=== PATIENT | female | born 1940 | race Caucasian/White ===

== ENCOUNTER 2022-05-11 08:50 | Emergency (ER) | payer BC, MEDICARE ==
[~2022-05-11] VITALS: Ht 172.7 cm; Wt 58.1 kg
--- NOTE | 2022-05-11 09:45 | NUR ---
Patient presented to the ER C/O (RT) 5th digit injury, C/O pain/discomfort, skin intact. Patient is A/O X 4, seen by the MD, X-ray ordered and completed. Patient seen and cleared for discharge home, Finger splint applied, discharge instructions given. Patient stable left ambulatory.
== END 2022-05-11 09:45 | disposition home or self-care (01) ==
LOC: ER 08:53
DX: M65.351 Trigger finger, right little finger (principal); S66.307A Unspecified injury of extensor muscle, fascia and tendon of left little finger at wrist and hand level, initial encounter; X58.XXXA Exposure to other specified factors, initial encounter; Y92.89 Other specified places as the place of occurrence of the external cause; Z88.0 Allergy status to penicillin
CPT/HCPCS: 73140; A4663